=== PATIENT | male | born 1985 | race Hispanic/Latino ===

== ENCOUNTER 2016-10-03 18:49 | Emergency (ER) | payer OTHER ==
[~2016-10-03] VITALS: Ht 170.2 cm; Wt 70.5 kg
[2016-10-03 19:05] VITALS: BP 124/72; PULSE 57; RESP 16; O2SAT 98
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
[2016-10-03 20:23] VITALS: BP 123/71; PULSE 62; RESP 16; O2SAT 98
== END 2016-10-03 20:23 | disposition home or self-care (01) ==
LOC: SED 18:49
DX: S16.1XXA Strain of muscle, fascia and tendon at neck level, initial encounter (principal); V43.52XA Car driver injured in collision with other type car in traffic accident, initial encounter; Y93.89 Activity, other specified; Y99.8 Other external cause status; Y92.411 Interstate highway as the place of occurrence of the external cause